=== PATIENT | female | born 1955 | race Caucasian/White ===

== ENCOUNTER 2016-11-02 07:46 | Outpatient (CLI) ==
--- NOTE | 2016-11-02 09:31 | US ---
EXAM: RENAL ULTRASOUND, BILATERAL HISTORY: Decreased renal function FINDINGS: Ultrasound renal, bilateral. Christian-scale ultrasound and color Doppler imaging was perform ed. The right kidney measures 10.0 x 5.9 x 3.8 centimeters. The left kidney measures 10.5 x 4.3 x 4.3 centimeters. General cortical echogenicity and volume are normal for age. No solid or cystic cortical masses. N o hydronephrosis is identified. The visualized urinary bladder was grossly normal. IMPRESSION: Findings within normal limits sonographically.
--- NOTE | 2016-11-03 09:33 | MAMMO ---
EXAM: Digital screening mammogram HISTORY: Screening COMPARISON: 11/27/2011 FINDINGS: Digital MLO and CC views of the right and left breast were performed. There are scatter ed fibroglandular densities. There is a biopsy clip in the right breast. There is no evidence for ma ss, asymmetry, distortion, or suspicious calcifications in either breast. IMPRESSION: 1. No evidence of malignancy in the right or left breast. 2. Annual screening mammogram is recommended in one year. BIRADS category 1, negative examination
== END 2016-11-02 07:47 | disposition home or self-care (01) ==
LOC: RAD 07:46
PROVIDERS: ATTEND Family Medicine
DX: Z12.31 Encounter for screening mammogram for malignant neoplasm of breast (principal); N28.9 Disorder of kidney and ureter, unspecified
CPT/HCPCS: 76770

== ENCOUNTER 2019-05-03 19:05 | Emergency (ER) ==
[2019-05-03 19:18] VITALS: BP 123/87; TEMP 97.5; BMI 33.5
--- NOTE | 2019-05-03 19:23 | ED.PDOC ---
General ED Provider: Dr. AJ TREJO Chief Complaint: Abdominal Pain Stated Complaint: Patient is a 64 year old female who comes to the ER with abdominal cramping that started yesterday after eating a steak and salad. her had somthing different and did not get sick. Initially had hard stool that then changed into Loose stool. Has had 3 diarrhea stool yesterday and has vomited 3 times today. Today she complains of mid lower abdomianl pain with some cramping then slowly progressing to the right lower and upper quadrants. Denies fever. Time Seen by Physician: 19:20 Mode of Arrival: Walk-In Information Source: Patient Primary Care Provider: DAYANA TELLO Nursing and Triage Documentation Reviewed and Agree: Yes Does patient meet sepsis criteria?: Yes If yes, has appropriate treatment been initiated?: No System Inflammatory Response Syndrome: Not Applicable Sepsis Protocol: For patient's 13 years and over: Temp is 96.8 and below OR 101 and greater Pulse >90 BPM Resp >20/minute Acutely Altered Mental Status Are patient's symptoms suggestive of a new infection, such as: -Pneumonia -Skin, Soft Tissue -Endocarditis -UTI -Bone, Joint Infection -Implantable Device -Acute Abdominal Infection -Wound Infection -Meningitis -Blood Stream Catheter Infection -Unknown Review of Systems - Review Of Systems Constitutional: Reports: No symptoms Eyes: Reports: No symptoms Ears, Nose, Mouth, Throat: Reports: No symptoms Respiratory: Reports: No symptoms Cardiac: Reports: No symptoms GI: Reports: Abdominal pain, Diarrhea, Nausea, Vomiting : Reports: No symptoms Musculoskeletal: Reports: No symptoms Skin: Reports: No symptoms Neurological: Reports: No symptoms Endocrine: Reports: No symptoms Hematologic/Lymphatic: Reports: No symptoms All Other Systems: Reviewed and Negative Past Medical History - Past Medical History Previously Healthy: Yes Endocrine: Reports: Dyslipidemia Cardiovascular: Reports: Hypertension Respiratory: Reports: None Hematological: Reports: None Gastrointestinal: Reports: None Genitourinary: Reports: None Neuro/Psych: Reports: None Musculoskeletal: Reports: None Cancer: Reports: None Last Menstrual Period: PT HAS HAD A HYSTERECTOMY - Surgical History General Surgical History: Reports: Hysterectomy, Cholecystectomy, Tonsillectomy , Orthopedic (MENISCUS TEAR/KNEE REPLACEMENT RIGHT KNEE), Back Surgery (LOWER BACK SURGERY) - Family History Family History: Reports: Unknown - Social History Smoking Status: Current every day smoker, Heavy tobacco smoker Hx Substance Use: No Alcohol Screening: None - Immunizations Tetanus Shot up to Date: (UNKNOWN) Physical Exam - Physical Exam Appearance: Ill-appearing Ill-appearing: Moderate Pain Distress: Moderate Eyes: JASMYNE, EOMI, Conjunctiva clear Neck: Supple Respiratory: Airway patent, Breath sounds clear, Breath sounds equal, Respirations nonlabored Cardiovascular: RRR, Pulses normal, No rub, No murmur GI/: Soft, Tender (mild diffuse) Musculoskeletal: Normal strength, ROM intact, No edema, No calf tenderness Skin: Warm, Dry, Normal color Neurological: Sensation intact Interpretation - Radiology Interpretation Radiology Interpretation By: Radiologist Radiology Results: Positive (colitis) Exam Interpreted: CT Scan Critical Care Note - Critical Care Note Total Time (mins): 30 Course - Course Hematology/Chemistry: 05/03/19 19:30 05/03/19 19:30 Orders, Labs, Meds: Lab Review 05/03/19 05/03/19 05/03/19 19:30 19:30 20:56 WBC 12.24 H RBC 5.55 H Hgb 16.1 H Hct 47.3 H MCV 85.2 MCH 29.0 MCHC 34.0 RDW Coeff of Baron 13.9 Plt Count 344 Immature Gran % (Auto) 0.2 Neut % (Auto) 66.9 Lymph % (Auto) 23.0 Johnson % (Auto) 8.5 Eos % (Auto) 1.1 Baso % (Auto) 0.3 Immature Gran # (Auto) 0.0 Neut # (Auto) 8.2 H Lymph # (Auto) 2.8 Johnson # (Auto) 1.0 Eos # (Auto) 0.1 Baso # (Auto) 0.0 Sodium 132.2 L Potassium 4.31 Chloride 99.6 Carbon Dioxide 23.3 Anion Gap 13.61 BUN 6.9 L Creatinine 0.81 Estimated GFR (MDRD) 71.00 BUN/Creatinine Ratio 8.51 Glucose 105.8 Calcium 9.72 Total Bilirubin 0.86 AST 23.1 ALT 15.8 Alkaline Phosphatase 138.1 Total Protein 8.04 Albumin 4.84 Globulin 3.20 Albumin/Globulin Ratio 1.51 Amylase 117.8 H Lipase 312.5 H Urine Color Yellow Urine Clarity Clear Urine pH 6.5 Ur Specific Seanor 1.010 Urine Protein Negative Urine Glucose (UA) Negative Urine Ketones Negative Urine Blood Negative Urine Nitrite Negative Urine Bilirubin Negative Urine Urobilinogen 0.2 Ur Leukocyte Esterase Trace Urine Microscopic WBC 0-2 Ur Squamous Epith Cells 5-10 Orders Category Date Time Status NPO REMINDER: IMAGING ONCE CARE 05/03/19 19:24 Active ED IV/MEDIPORT/POWERPORT .ONCE EMERGENCY 05/03/19 19:25 Active AMYLASE Stat LAB 05/03/19 19:30 Completed CBC W/ AUTO DIFF Stat LAB 05/03/19 19:30 Completed COMPREHENSIVE METABOLIC PANEL Stat LAB 05/03/19 19:30 Completed LIPASE Stat LAB 05/03/19 19:30 Completed URINALYSIS C & S IF INDICATED Stat LAB 05/03/19 20:56 Completed 0.9 % Sodium Chloride [Saline Flush] MEDS 05/03/19 19:25 Discontinued 1 syr IVF PRN PRN Sodium Chloride 0.9% [Sodium Chloride] 1,000 ml MEDS 05/03/19 19:[address] ABDOMEN/PELVIS W/WO CONTRAS Stat RADS 05/03/19 19:24 Completed Medications Discontinued Medications Generic Name Dose Route Start Last Admin Trade Name Freq PRN Reason Stop Dose Admin Sodium Chloride 1,000 mls @ 1,000 mls/hr 05/03/19 19:25 05/03/19 19:47 Sodium Chloride IV 05/03/19 20:24 1,000 mls/hr BOLUS STA Administration Sodium Chloride 1 syr 05/03/19 19:25 05/03/19 19:47 Saline Flush IVF 1 syr PRN PRN Administration To flush IV Vital Signs: Temp Pulse Resp BP Pulse Ox 05/03/19 19:05 97.5 F L 91 H 18 123/87 96 Departure - Departure Time of Disposition: 21:30 Disposition: HOME SELF-CARE Discharge Problem: Abdominal pain, Gastroenteritis and colitis, viral Instructions: Gastroenteritis (ED), Food Poisoning (ED), Colitis (ED) Condition: Fair Pt referred to PMD for follow-up: Yes IPMP verified?: No Additional Instructions: Follow up with primary MD. Allergies/Adverse Reactions: Allergies Penicillins Adverse Reaction (Verified 05/03/19 19:20) Vomiting PAIN MEDS Adverse Reaction (Uncoded 05/03/19 19:20) Rash CAN TAKE ULTRAM Home Medications: Ambulatory Orders 1 [Unobtainable] 05/03/19
[2019-05-03] MEDS ORDERED: SODIUM CHLORIDE 1,000 ML IV STA (19:25)
--- NOTE | 2019-05-03 20:43 | CT ---
EXAM: CT abdomen and pelvis before and after administration of IV contrast. HISTORY: Abdominal pain and diarrhea TECHNIQUE: Multi-slice transaxial helical CT. Coronal and sagittal reformatons were performed. COMPARISON: None FINDINGS: The heart is normal in size. Emphysematous changes of the lungs are seen. Calcified granulomas are seen the lung bases. 3 mm noncalcified pulmonary nodule in the right lower lobe is seen on axial ivania ge 14. The gallbladder has been removed. The spleen is normal in size. The pancreas and the bilateral adre nal glands appear grossly unremarkable. No intrahepatic biliary ductal dilation is seen. No hydrone phrosis or renal calculus is seen. The bowel is not dilated. Diffuse thickening of the cecum is seen. Subtle stranding densities about the cecum is seen P the appendix appears normal in size. Nondilated fluid filled small bowel loops are seen. The uterus has been removed. Urinary bladder appears grossly unremarkable. No pelvic free fluid is seen. Scattered calcified plaques are present within the abdominal aorta. No retroperiton eal adenopathy is seen. Tiny fat containing periumbilical hernia is seen. The bones appear osteopen ic. L4-L5 posterior carlos and demonstrate screw fusion is seen. There is 8 mm of anterior listhesis o f L4 on L5. Advanced disc space narrowing and L5-S1 is seen. Multilevel up to moderate disc space n arrowing is seen. IMPRESSION: 1. Findings concerning for cecal colitis. Recommend clinical colonoscopy/imaging follow-up to exclud e malignancy. 2. Nonspecific fluid filled small bowel loops. This can be a normal variant or related to mild ileu s or enteritis. 3. Tiny 3 mm pulmonary nodule in the right lower lobe. Consider follow-up CT chest in 12 months per 2017 Fleischner Society guidelines. 4. Prior cholecystectomy and hysterectomy. 5. Other operative and incidental findings as detailed above.
== END 2019-05-03 22:01 | disposition home or self-care (01) ==
LOC: ED 19:05
DX: A08.4 Viral intestinal infection, unspecified (principal); R10.9 Unspecified abdominal pain; F17.210 Nicotine dependence, cigarettes, uncomplicated
CPT/HCPCS: 36415; 80053; 81001; 82150; 83690; 85025; 96360; 99283